=== PATIENT | female | born 1930 | race American Indian/Alaskan Native ===

== ENCOUNTER 2017-07-07 05:56 | Observation (INO) | payer MEDICARE, OTHER ==
--- NOTE | 2017-07-07 07:01 | ED PDOC ---
HPI: Trauma/Fall - HPI Time Seen by Provider: 07/07/17 06:01 Chief Complaint (Nursing): Dental Pain Chief Complaint (Provider): Head laceration History Per: Family History/Exam Limitations: no limitations Onset/Duration Of Symptoms: Mins (prior to arrival) Additional Complaint(s): Chikis is an 86-year-old female with a past medical history of Alzheimer's dementia, hypertension, stroke, vision loss, CAD, and gastritis, who presents to the ED for a laceration to the left eyebrow after sustaining a fall this morning at 5:30AM. Family believes that patient was getting out of bed to go the bathroom, fell, and hit her head on the night stand. No LOC. Tetanus is not up to date. Family states Chikis has little to no vision and that currently her behavior is baseline. PMD: Unknown Past Medical History Reviewed: Historical Data, Nursing Documentation, Vital Signs Vital Signs: Last Vital Signs Temp 97.6 F 07/08/17 05:31 Pulse 67 07/08/17 05:31 Resp 18 07/08/17 05:31 BP 175/69 H 07/08/17 05:31 Pulse Ox 100 07/08/17 06:41 - Medical History PMH: CAD, Dementia, Gastritis, HTN Other PMH: Stroke, vision loss - Surgical History Surgical History: No Surg Hx - Family History Family History: States: Unknown Family Hx - Social History Current smoker - smoking cessation education provided: No Alcohol: None Drugs: Denies - Home Medications Home Medications: Ambulatory Orders Medication Instructions Recorded Clopidogrel [Plavix] 75 mg PO DAILY 07/07/17 Memantine [Namenda] 10 mg PO BID 07/07/17 Metoprolol Tartrate [Lopressor] 50 mg PO TID 07/07/17 Multivitamin [One-A-Day Essential] 1 each PO DAILY 07/07/17 Omeprazole 20 mg PO BID 07/07/17 Valsartan [Diovan] 160 mg PO DAILY 07/07/17 amLODIPine [Norvasc] 10 mg PO DAILY 07/07/17 - Allergies Allergies/Adverse Reactions: Allergies Allergy/AdvReac Type Severity Reaction Status Date / Time No Known Allergies Allergy Verified 07/07/17 06:32 Review of Systems ROS Statement: Except As Marked, All Systems Reviewed And Found Negative Skin: Positive for: Lesions (to the left eyebrow) Neurological: Negative for: Other (LOC) Physical Exam - Reviewed Nursing Documentation Reviewed: Yes Vital Signs Reviewed: Yes - Physical Exam Appears: Positive for: Non-toxic, No Acute Distress Head Exam: Positive for: NORMAL INSPECTION, NORMOCEPHALIC Skin: Positive for: Normal Color (2 cm linear lesion, vertical to the left eyebrow), Warm, Dry - Laboratory Results Result Diagrams: 07/07/17 08:52 07/07/17 08:52 - ECG O2 Sat by Pulse Oximetry: 100 (RA) Pulse Ox Interpretation: Normal Medical Decision Making Medical Decision Making: Time: 06:34 Initial Impression: Head injury Initial Plan: --Will repair laceration with Dermabond --Tetanus booster --Pending CT Head w/o contrast Time: 06:56 --Procedure: Laceration irrigated and then glued using Dermabond, without difficulty Time: 07:00 --Patient is signed out by me to Dr. Mc Nair, pending CT scan Scribe Attestation: Documented by Brionna Hutton, acting as a scribe for Ronda Woodall MD Provider Scribe Attestation: All medical record entries made by the Scribe were at my direction and personally dictated by me. I have reviewed the chart and agree that the record accurately reflects my personal performance of the history, physical exam, medical decision making, and the department course for this patient. I have also personally directed, reviewed, and agree with the discharge instructions and disposition. Disposition - Clinical Impression Clinical Impression: Head injury, Laceration - Patient ED Disposition Is Patient to be Admitted: Transfer of Care - Disposition Disposition Time: 07:00 Condition: FAIR Patient Signed Over To: Mc Nair
--- NOTE | 2017-07-07 08:01 | ED PDOC ---
- ECG O2 Sat by Pulse Oximetry: 100 (RA) Pulse Ox Interpretation: Normal - Progress ED Course And Treament: 700: Took over care from Dr. Woodall. Fu on CT. Pt. with accidentally rolled out of bed and hit head. 759: Stable. AAOx3. 841: Pt. on plavix. Will need obs for further observation of delayed head bleed. Spoke with [facility] resident. Will admit tele obs. Disposition Counseled Patient/Family Regarding: Studies Performed, Diagnosis - Clinical Impression Clinical Impression: Head injury, Laceration - POA Present On Arrival: Falls Or Trauma - Disposition Disposition: Hospitalized as Observation Patient Disposition Time: 08:42 Condition: FAIR
--- NOTE | 2017-07-07 08:08 | CT ---
PROCEDURE: CT HEAD WITHOUT CONTRAST. HISTORY: fall COMPARISON: None available. TECHNIQUE: Axial computed tomography images were obtained through the head/brain without intravenous contrast. Radiation dose: Total exam DLP = 762 mGy-cm. This CT exam was performed using one or more of the following dose reduction techniques: Automated exposure control, adjustment of the mA and/or kV according to patient size, and/or use of iterative reconstruction technique. FINDINGS: HEMORRHAGE: No intracranial hemorrhage. BRAIN: No mass effect or edema. Bilateral chronic occipital infarcts. VENTRICLES: Unremarkable. No hydrocephalus. CALVARIUM: Unremarkable. PARANASAL SINUSES: Unremarkable as visualized. No significant inflammatory changes. MASTOID AIR CELLS: Unremarkable as visualized. No inflammatory changes. OTHER FINDINGS: None. IMPRESSION: No acute hemorrhage.
[2017-07-07] MEDS ORDERED: Sodium Chloride 0.9% 500 ML IV STA (08:37)
[2017-07-07 08:56] LABS: BASO # 0.1 K/uL (0.0-0.2); EOS # 0.2 K/uL (0.0-0.7); EOS % 2.9 % (0.0-4.0); LYMPH # 1.4 K/uL (1.0-4.3); LYMPH % 19.8 % (20.0-40.0); MEAN CELL VOLUME 90.4 fl (81.0-99.0); MEAN CORPUSCULAR HEMOGLOBIN 29.2 pg (27.0-31.0); MEAN CORPUSCULAR HGB CONC 32.3 g/dL (33.0-37.0); MEAN PLATELET VOLUME 7.5 fl (7.2-11.7); MONO # 0.6 K/uL (0.0-0.8); MONO % 8.4 % (0.0-10.0); NEUT # 4.8 K/uL (1.8-7.0); NEUT % 67.9 % (50.0-75.0); NRBC % 0.1 % (0.0-0.0); RBC 4.11 Mil/uL (3.80-5.20); RED CELL DISTRIBUTION WIDTH 14.2 % (11.5-14.5); WHITE BLOOD COUNT 7.1 K/uL (4.8-10.8)
[2017-07-07 09:13] LABS: BLOOD UREA NITROGEN 13 mg/dl (7-17); CALCIUM 10.1 mg/dL (8.4-10.2); GFR AFRICAN-AMERICAN > 60; GFR NON-AFRICAN AMERICAN > 60
[2017-07-07 09:14] LABS: INR 1.1 (0.9-1.2); PARTIAL THROMBOPLASTIN TIME 26.9 Seconds (25.6-37.1); PROTHROMBIN TIME 11.1 Seconds (9.8-13.1)
--- NOTE | 2017-07-07 09:28 | CP.PCM.HP ---
<Shady Clements - Last Filed: 07/07/17 16:40> History of Present Illness - History of Present Illness History of Present Illness: CC/HPI: Pt. seen in the E.D. Pt. lying in bed with daughter at bedside. Pt. Reports she is in the E.D. because of a fall. Pt. states the fall happened just prior to arrival in the E.D. Pt. states was in bed and got up to go to the bathroom but fell. Pt. denies any lightheadedness, fainting, palpitations, head trauma, incontinence, weakness, or dizziness before the fall. Pt. does state that she has poor vision. The fall was not witnessed but patient lives with daughter. The daughter noticed that patient had a small laceration the left amish and brought her to the E.D. for further evaluation. ROS: Pt. denies any headache, chest pain, abdominal pain, nausea, vomiting, diarrhea, fever, or chills. PMHx. HTN, HLD, CVA, Alzheimer Dementia, Blindness PSHx: None FMHx: Not contributory Social: TOB- None ETOH- None DRUGS- None HOME- Lives with daughtr Allergies: NKDA Home Meds: See Med List PMD: Dr. 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) - GASTROINTESTINAL Hx Gastritis: Yes - PSYCHIATRIC Hx Substance Use: No - SURGICAL HISTORY Hx Surgeries: No - ANESTHESIA Hx Anesthesia: No Meds Allergies/Adverse Reactions: Allergies Allergy/AdvReac Type Severity Reaction Status Date / Time No Known Allergies Allergy Verified 07/07/17 06:32 Physical Exam - Constitutional Appears: Non-toxic, No Acute Distress - Head Exam Additional comments: Approximately 1cm laceration above left eyelid closed with dermabond Results - Vital Signs Recent Vital Signs: Last Vital Signs Temp 97.6 F 08/15/17 06:28 Pulse 70 07/07/17 06:28 Resp 16 07/07/17 06:28 BP 152/63 H 07/07/17 06:28 Pulse Ox 100 07/07/17 08:42 - Labs Result Diagrams: 07/07/17 08:52 07/07/17 08:52 Labs: Laboratory Results - last 24 hr 07/07/17 07/07/17 07/07/17 08:52 08:52 08:52 WBC 7.1 RBC 4.11 Hgb 12.0 Hct 37.1 MCV 90.4 MCH 29.2 MCHC 32.3 L RDW 14.2 Plt Count 221 MPV 7.5 Neut % (Auto) 67.9 Lymph % (Auto) 19.8 L [place] % (Auto) 8.4 Eos % (Auto) 2.9 Baso % (Auto) 1.0 Neut # 4.8 Lymph # 1.4 [place] # 0.6 Eos # 0.2 Baso # 0.1 PT 11.1 INR 1.1 APTT 26.9 Sodium 142 Potassium 3.4 L Chloride 105 Carbon Dioxide 30 Anion Gap 10 BUN 13 Creatinine 0.8 Est GFR ( Amer) > 60 Est GFR (Non-Af Amer) > 60 Random Glucose 100 Calcium 10.1 Troponin I < 0.0120 Assessment & Plan - Assessment and Plan (Free Text) Assessment: 86 y.o. female admitted for head trauma and fall on plavix Head trauma-Fall 1- Admit to tele Telemetry 2- Fall precautions 3- Neuro Checks 4- Neuro Consult- Dr. Foster input appreciated 5- PT/OT evaluate and treat Hypokalemia- 3.5 1- Repeat BMP in the a.m. 1st degree AV block on EKG 1- Replenish K+ 2- Consider Cardiac workup as outpatient 3- Check Marc Phos HTN 1- c/w Diovan, Metoprolol, Amlodipine Alzheimer Dementia 1- c/w Namenda Hx of Stroke 1- c/w Plavix 75mg Diet 1- Heart Healthy <Jose Prabhakar A - Last Filed: 07/08/17 06:57> Results - Vital Signs Recent Vital Signs: Last Vital Signs Temp 97.6 F 07/08/17 05:31 Pulse 67 07/08/17 05:31 Resp 18 07/08/17 05:31 BP 175/69 H 07/08/17 05:31 Pulse Ox 100 07/08/17 06:42 - Labs Result Diagrams: 07/07/17 08:52 07/07/17 08:52 Labs: Laboratory Results - last 24 hr 07/07/17 07/07/17 07/07/17 08:52 08:52 08:52 WBC 7.1 RBC 4.11 Hgb 12.0 Hct 37.1 MCV 90.4 MCH 29.2 MCHC 32.3 L RDW 14.2 Plt Count 221 MPV 7.5 Neut % (Auto) 67.9 Lymph % (Auto) 19.8 L [place] % (Auto) 8.4 Eos % (Auto) 2.9 Baso % (Auto) 1.0 Neut # 4.8 Lymph # 1.4 [place] # 0.6 Eos # 0.2 Baso # 0.1 PT 11.1 INR 1.1 APTT 26.9 Sodium 142 Potassium 3.4 L Chloride 105 Carbon Dioxide 30 Anion Gap 10 BUN 13 Creatinine 0.8 Est GFR ( Amer) > 60 Est GFR (Non-Af Amer) > 60 Random Glucose 100 Calcium 10.1 Troponin I < 0.0120 Attending/Attestation - Attestation I have personally seen and examined this patient.: Yes I have fully participated in the care of the patient.: Yes I have reviewed all pertinent clinical information: Yes
[2017-07-07] MEDS: Multivitamin With Minerals Tab PO SCH (13:18)
--- NOTE | 2017-07-07 15:02 | CP.PCM.CON ---
History of Present Illness - History of Present Illness History of Present Illness: Mrs. 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 CT scan of the head did not show any bleed. Family is at bedside and state that she is at baseline. The patient denies headache. She has no focal weakness or sensory changes, and does not have any other complaints. 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) - RENAL Hx Chronic Kidney Disease: No - ENDOCRINE/METABOLIC Hx Endocrine Disorders: No - HEMATOLOGICAL/ONCOLOGICAL Hx Blood Disorders: No - INTEGUMENTARY Hx Dermatological Problems: No - MUSCULOSKELETAL/RHEUMATOLOGICAL Hx Falls: Yes - GASTROINTESTINAL Hx Gastritis: Yes - GENITOURINARY/GYNECOLOGICAL Hx Genitourinary Disorders: No - PSYCHIATRIC Hx Psychophysiologic Disorder: No Hx Substance Use: No - SURGICAL HISTORY Hx Surgeries: No - ANESTHESIA Hx Anesthesia: No Meds Allergies/Adverse Reactions: Allergies Allergy/AdvReac Type Severity Reaction Status Date / Time No Known Allergies Allergy Verified 07/07/17 06:32 - Medications Medications: Current Medications Amlodipine Besylate (Norvasc) 10 mg PO DAILY [facility] Last Admin: 07/07/17 13:18 Dose: 10 mg Clopidogrel Bisulfate (Plavix) 75 mg PO DAILY [facility] Memantine (Namenda) 10 mg PO BID [facility] Metoprolol Tartrate (Lopressor) 50 mg PO TID [facility] Last Admin: 07/07/17 13:24 Dose: 50 mg Multivitamins/Minerals (Therapeutic-M Tab) 1 tab PO DAILY [facility] Last Admin: 07/07/17 13:18 Dose: 1 tab Valsartan (Diovan) 160 mg PO DAILY [facility] Last Admin: 07/07/17 13:17 Dose: 160 mg Physical Exam - Constitutional Appears: Cachectic - Head Exam Additional comments: area of trauma to left side of head with laceration - Eye Exam Eye Exam: EOMI, Normal appearance, PERRL - ENT Exam ENT Exam: Mucous Membranes Moist, Normal Exam - Neck Exam Neck exam: Positive for: Full Rom, Normal Inspection - Respiratory Exam Respiratory Exam: Clear to Auscultation Bilateral - Cardiovascular Exam Cardiovascular Exam: REGULAR RHYTHM, +S1, +S2 - GI/Abdominal Exam GI & Abdominal Exam: Normal Bowel Sounds, Soft. absent: Tenderness - Rectal Exam Rectal Exam: Deferred - Extremities Exam Extremities exam: Positive for: normal inspection - Back Exam Back exam: NORMAL INSPECTION - Neurological Exam Neurological exam: Alert, CN II-XII Intact, Normal Gait, Oriented x3, Reflexes Normal - Skin Skin Exam: Dry, Intact, Normal Color, Warm Results - Vital Signs Recent Vital Signs: Last Vital Signs Temp 97.8 F 07/07/17 12:00 Pulse 67 07/07/17 13:24 Resp 16 07/07/17 12:02 BP 177/70 H 07/07/17 13:24 Pulse Ox 100 07/07/17 12:00 - Labs Result Diagrams: 07/07/17 08:52 07/07/17 08:52 Labs: Laboratory Results - last 24 hr 07/07/17 07/07/17 07/07/17 08:52 08:52 08:52 WBC 7.1 RBC 4.11 Hgb 12.0 Hct 37.1 MCV 90.4 MCH 29.2 MCHC 32.3 L RDW 14.2 Plt Count 221 MPV 7.5 Neut % (Auto) 67.9 Lymph % (Auto) 19.8 L [place] % (Auto) 8.4 Eos % (Auto) 2.9 Baso % (Auto) 1.0 Neut # 4.8 Lymph # 1.4 [place] # 0.6 Eos # 0.2 Baso # 0.1 PT 11.1 INR 1.1 APTT 26.9 Sodium 142 Potassium 3.4 L Chloride 105 Carbon Dioxide 30 Anion Gap 10 BUN 13 Creatinine 0.8 Est GFR ( Amer) > 60 Est GFR (Non-Af Amer) > 60 Random Glucose 100 Calcium 10.1 Troponin I < 0.0120 - Imaging and Cardiology CT scan - head Status: Image reviewed by me, Report reviewed by me (Occipital lobe infarcts that are chronic. No acute findings. ) Assessment & Plan (1) Head injury Assessment and Plan: Due to fall, likely from blindness that is chronic. No other focal neurologic deficits. Treat conservatively. No further recommendations. Thank you. Status: Acute
[2017-07-07] MEDS ORDERED: Potassium Chloride 20 mEq ER Tab PO ONE (17:32)
[2017-07-07] MEDS: Nitroglycerin 0.2 mg/hr Top Patch TD SCH (22:03)
[2017-07-08 07:10] LABS: BLOOD UREA NITROGEN 12 mg/dl (7-17); CALCIUM 10.4 mg/dL (8.4-10.2); GFR AFRICAN-AMERICAN > 60; GFR NON-AFRICAN AMERICAN > 60
[2017-07-08 08:00] VITALS: RESP 20
--- NOTE | 2017-07-08 09:13 | CP.PCM.DIS ---
Provider - Provider Date of Admission: 07/07/17 08:40 Attending physician: Jose Mcintyre MD Primary care physician: Jose Mcintyre MD Consults: Neurology: Dr. Foster Time Spent in preparation of Discharge (in minutes): 35 Diagnosis - Discharge Diagnosis (1) Head injury Status: Acute Comment: Seen by neurology, no acute intracranial pathology. Restart aspirin and plavix. (2) Laceration Status: Acute Hospital Course - Lab Results Lab Results: Most Recent Lab Values WBC 7.1 K/uL (4.8-10.8) 07/07/17 08:52 RBC 4.11 Mil/uL (3.80-5.20) 07/07/17 08:52 Hgb 12.0 g/dL (12.0-16.0) 07/07/17 08:52 Hct 37.1 % (34.0-47.0) 07/07/17 08:52 MCV 90.4 fl (81.0-99.0) 07/07/17 08:52 MCH 29.2 pg (27.0-31.0) 07/07/17 08:52 MCHC 32.3 g/dL (33.0-37.0) L 07/07/17 08:52 RDW 14.2 % (11.5-14.5) 07/07/17 08:52 Plt Count 221 K/uL (130-400) 07/07/17 08:52 MPV 7.5 fl (7.2-11.7) 07/07/17 08:52 Neut % (Auto) 67.9 % (50.0-75.0) 07/07/17 08:52 Lymph % (Auto) 19.8 % (20.0-40.0) L 07/07/17 08:52 [place] % (Auto) 8.4 % (0.0-10.0) 07/07/17 08:52 Eos % (Auto) 2.9 % (0.0-4.0) 07/07/17 08:52 Baso % (Auto) 1.0 % (0.0-2.0) 07/07/17 08:52 Neut # 4.8 K/uL (1.8-7.0) 07/07/17 08:52 Lymph # 1.4 K/uL (1.0-4.3) 07/07/17 08:52 [place] # 0.6 K/uL (0.0-0.8) 07/07/17 08:52 Eos # 0.2 K/uL (0.0-0.7) 07/07/17 08:52 Baso # 0.1 K/uL (0.0-0.2) 07/07/17 08:52 PT 11.1 Seconds (9.8-13.1) 07/07/17 08:52 INR 1.1 (0.9-1.2) 07/07/17 08:52 APTT 26.9 Seconds (25.6-37.1) 07/07/17 08:52 Sodium 141 mmol/l (132-148) 07/08/17 05:25 Potassium 3.7 MMOL/L (3.6-5.0) 07/08/17 05:25 Chloride 101 mmol/L (98-107) 07/08/17 05:25 Carbon Dioxide 27 mmol/L (22-30) 07/08/17 05:25 Anion Gap 16 (10-20) 07/08/17 05:25 BUN 12 mg/dl (7-17) 07/08/17 05:25 Creatinine 0.7 mg/dL (0.7-1.2) 07/08/17 05:25 Est GFR ( Amer) > 60 07/08/17 05:25 Est GFR (Non-Af Amer) > 60 07/08/17 05:25 Random Glucose 100 mg/dL (65-105) 07/08/17 05:25 Calcium 10.4 mg/dL (8.4-10.2) H 07/08/17 05:25 Phosphorus 2.7 mg/dl (2.5-4.5) 07/08/17 05:25 Magnesium 2.0 MG/DL (1.6-2.3) 07/08/17 05:25 Troponin I < 0.0120 ng/mL (0.00-0.120) 07/07/17 08:52 - Hospital Course Hospital Course: 86 year old female admitted s/p fall with head trauma and laceration while on aspirin and plavix. Head CT was negative for ICH. She was evaluated by neurology, fall likely secondary to patients cortical blindness. Stable for discharge. No medications started during this admission. Resume home medications as per medication reconciliation. - Date & Time of H&P Date of H&P: 07/07/17 Time of H&P: 09:27 Discharge Exam - Head Exam Head Exam: NORMOCEPHALIC Additional comments: left forehead: dressing clean dry and intact. - Eye Exam Eye Exam: Normal appearance - ENT Exam ENT Exam: Mucous Membranes Moist - Respiratory Exam Respiratory Exam: Clear to PA & Lateral, NORMAL BREATHING PATTERN - Cardiovascular Exam Cardiovascular Exam: REGULAR RHYTHM (murmur), +S1, +S2 - GI/Abdominal Exam GI & Abdominal Exam: Normal Bowel Sounds, Soft. absent: Distended, Guarding, Tenderness - Rectal Exam Rectal Exam: Deferred - Neurological Exam Neurological exam: Alert Additional comments: moving upper and lower extremities spontaneously - Psychiatric Exam Psychiatric exam: Normal Affect, Normal Mood Discharge Plan - Follow Up Plan Condition: FAIR Disposition: HOME/ ROUTINE Patient education suggested?: Yes Instructions: Head Injury (DC) Additional Instructions: Patient to follow up with Dr. Mcintyre in 1 week. No discharge medications. Resume home medications. Referrals: Jose Mcintyre MD [Primary Care Provider] -
[2017-07-08] MEDS: Multivitamin With Minerals Tab PO SCH (09:14)
[2017-07-08] MEDS: Nitroglycerin 0.2 mg/hr Top Patch TD SCH (09:14)
[2017-07-08 12:05] VITALS: BP 136/64; PULSE 71; TEMP 97.8; O2SAT 95
== END 2017-07-08 12:39 | disposition home or self-care (01) ==
LOC: H.ER 05:56 → H.ERHOLD 08:40 → H.TEL 09:47
PROVIDERS: ADMIT Family Medicine; ATTEND Family Medicine
DX: S01.112A Laceration without foreign body of left eyelid and periocular area, initial encounter (principal); S09.90XA Unspecified injury of head, initial encounter; E87.6 Hypokalemia; G30.9 Alzheimer's disease, unspecified; F02.80 Dementia in other diseases classified elsewhere, unspecified severity, without behavioral disturbance, psychotic disturbance, mood disturbance, and anxiety; H54.0 Blindness, both eyes; I10 Essential (primary) hypertension; I25.10 Atherosclerotic heart disease of native coronary artery without angina pectoris; Z23 Encounter for immunization; W06.XXXA Fall from bed, initial encounter; Z86.73 Personal history of transient ischemic attack (TIA), and cerebral infarction without residual deficits; Z87.891 Personal history of nicotine dependence; Y92.003 Bedroom of unspecified non-institutional (private) residence as the place of occurrence of the external cause
CPT/HCPCS: 36415; 70450; 80048; 83735; 84100; 84484; 85025; 85610; 85730; 90471; 90715; 97116; 97162; 99285; G0168; G0378; G8978; G8979; J7040